=== PATIENT | male | born 1990 | race Two or more races ===

== ENCOUNTER 2019-03-22 15:46 | Outpatient (CLI) | payer OTHER ==
[~2019-03-22 15:46] MED LIST: PHEN100C80 PO; [UNRECOGNIZED DRUG - CODE] PO
== END 2019-03-22 20:23 | disposition home or self-care (01) ==
LOC: MLB 15:46
PROVIDERS: ATTEND Psychiatry & Neurology Neurology
DX: R56.9 Unspecified convulsions (principal)
CPT/HCPCS: 36415; 80185

== ENCOUNTER 2019-09-20 15:15 | Outpatient (CLI) | payer OTHER ==
[2019-09-20 15:43] LABS: BASOPHILS % (AUTO) 0.8 % (0.0-2.0); EOSINOPHILS # (AUTO) 0.3 K/uL (0-0.4); EOSINOPHILS % (AUTO) 8.9 % (0.0-4.0); HEMATOCRIT 47.5 % (36-52); HEMOGLOBIN 16.3 g/dL (12.0-18.0); LYMPHOCYTES # (AUTO) 1.5 K/uL (2.0-11.5); LYMPHOCYTES % (AUTO) 39.3 % (20.5-51.1); MEAN CORPUSCULAR HEMOGLOBIN 32 pg (27-31); MEAN CORPUSCULAR HGB CONC 34 g/dL (33-37); MEAN CORPUSCULAR VOLUME 92.4 fL (80-94); MONOCYTES # (AUTO) 0.3 K/uL (0.8-1.0); MONOCYTES % (AUTO) 7.5 % (1.7-9.3); NEUTROPHILS # (AUTO) 1.7 K/uL (1.8-7.7); NEUTROPHILS % (AUTO) 43.5 % (42.2-75.2); PLATELET COUNT (AUTO) 238 K/uL (140-450); RED BLOOD CELL COUNT(AUTO) 5.14 MIL/uL (4.20-6.10); WHITE BLOOD COUNT (AUTO) 3.9 K/uL (4.8-10.8)
[2019-09-20 17:02] LABS: ANION GAP 11.7 (8-16); CARBON DIOXIDE 30.4 mmol/L (21-32); POTASSIUM 4.1 mmol/L (3.5-5.1)
[2019-09-20 17:03] LABS: ALBUMIN 4.2 g/dL (3.4-5.0); CHOL/HDL RATIO 3.9 (1-4.5); THYROID STIMULATING HORMONE 1.35 uIU/mL (0.34-3.74); TOTAL BILIRUBIN 0.4 mg/dL (0.0-1.0)
== END 2019-09-20 20:18 | disposition home or self-care (01) ==
LOC: MLB 15:15
PROVIDERS: ATTEND Family Medicine
DX: G40.802 Other epilepsy, not intractable, without status epilepticus (principal); D70.9 Neutropenia, unspecified; F33.40 Major depressive disorder, recurrent, in remission, unspecified
CPT/HCPCS: 36415; 80053; 84443; 85025